=== PATIENT | female | born 1980 | race Caucasian/White ===

== ENCOUNTER 2018-08-27 05:26 | Emergency (ER) | payer SELFPAY ==
[~2018-08-27] VITALS: Ht 162.6 cm; Wt 88.9 kg
[2018-08-27 05:32] VITALS: Ht 162.6 cm; Wt 88.9 kg
[2018-08-27 06:21] VITALS: BP 130/64
== END 2018-08-27 06:21 | disposition home or self-care (01) ==
LOC: ED 05:26
DX: L08.9 Local infection of the skin and subcutaneous tissue, unspecified (principal); K08.89 Other specified disorders of teeth and supporting structures; F17.210 Nicotine dependence, cigarettes, uncomplicated
CPT/HCPCS: 99406; J1885